=== PATIENT | female | born 1985 | race Caucasian/White ===

== ENCOUNTER 2017-04-26 11:16 | Inpatient (IN) | payer BC ==
[2017-04-26] MEDS ORDERED: Sodium Chloride 0.9% 10 ML Syringe FLUSH PRN (11:28)
[2017-04-26] MEDS ORDERED: Sodium Chloride 0.9% 1,000 ML IV ONE (11:28)
--- NOTE | 2017-04-26 11:44 | EDM.PDOC ---
ED HPI GENERAL MEDICAL PROBLEM - General Chief Complaint: Neurological Problem Stated Complaint: 1 HR AGO/NUMBNESS L SIDE OF FACE/SLURRED SPEECH Time Seen by Provider: 04/26/17 11:18 Source of Information: Reports: Patient History Limitations: Reports: No Limitations - History of Present Illness INITIAL COMMENTS - FREE TEXT/NARRATIVE: 31-year-old female presents for evaluation and treatment of left-sided facial droop. Patient reports about one hour prior to arrival she developed left-sided facial droop and slurred speech. This was witnessed by her . Reports lasted approximately 10 seconds and then resolved on its own. She reports currently she feels "off". She also reports shaky and tingling in her bilateral arms. She states her vision was blurred when this occurred but has now returned to normal. She denies any current headaches, chest pain, shortness of breath, nausea, vomiting or syncope. Patient reports she did feel lightheaded with this occurred. She did feel nauseous earlier but this is resolved. She is that she did feel short of breath and felt like she was not oxygenating properly. Patient is only on levothyroxine and multivitamins. She is currently breast-feeding. Last menstrual period was several weeks ago. Primary care provider is Dr. Mims Denies any illicit drug use. Patient does smoke cigarettes. 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: Endocrine/Metabolic History: Reports: Hypothyroidism - Past Surgical History HEENT Surgical History: Reports: Oral Surgery Social & Family History - Family History Family Medical History: Noncontributory - Tobacco Use Smoking Status *Q: Former Smoker Years of Tobacco use: 10 Packs/Tins Daily: 1 Used Tobacco, but Quit: Yes Month Tobacco Last Used: June Second Hand Smoke Exposure: Yes - Caffeine Use Caffeine Use: Reports: Coffee - Recreational Drug Use Recreational Drug Use: No ED ROS GENERAL - Review of Systems Review Of Systems: See Below Constitutional: Denies: Fever HEENT: Reports: Other (left facial droop) Respiratory: Denies: Shortness of Breath Cardiovascular: Denies: Chest Pain GI/Abdominal: Denies: Abdominal Pain, Vomiting Neurological: Reports: Tingling (bilteral arms). Denies: Headache, Syncope ED EXAM, NEURO - Physical Exam Exam: See Below Exam Limited By: No Limitations General Appearance: Alert, WD/WN, No Apparent Distress Eye Exam: Bilateral Eye: EOMI, Normal Inspection, PERRL Ears: Normal External Exam Nose: Normal Inspection Throat/Mouth: Normal Inspection, Normal Lips, Normal Voice, No Airway Compromise Neck: Normal Inspection Respiratory/Chest: No Respiratory Distress, Lungs Clear, Normal Breath Sounds Cardiovascular: Normal Peripheral Pulses, Regular Rate, Rhythm, No Murmur GI/Abdominal: Soft, Non-Tender Neurological: Alert, Normal Mood/Affect, Normal Dorsiflexion, CN II-XII Intact, Normal Plantar Flexion, Other (no drift to the arms or legs, ingredient scaler helper 5/5 bilaterally, dorsiflexion and plantar flexion 5/5 bilaterally; normal heel to golden testing, normal finger to nose testing.) Psychiatric: Normal Affect, Normal Mood Skin Exam: Warm, Dry, Normal Color EKG INTERPRETATION EKG Date: 04/26/17 Time: 11:40 Rate (Beats/Min): 48 [place]: Normal P-Wave: Present QRS: Normal ST-T: Normal QT: Normal EKG Interpretation Comments: Sinus bradycardia at 48 bpm. No acute changes. Reviewed by myself and Dr. Aiken. Course - Vital Signs Last Recorded V/S: Last Vital Signs Temp 36.4 C 04/26/17 20:03 Pulse 51 L 04/26/17 20:03 Resp 16 04/26/17 20:04 BP 123/80 04/26/17 20:03 Pulse Ox 98 04/26/17 20:03 - Orders/Labs/Meds Orders: Active Orders 24 hr Category Date Time Status EKG Documentation Completion [RC] ASDIRECTED Care 04/26/17 11:29 Active Peripheral IV Care [RC] Q2HR Care 04/26/17 11:29 Active Chest 1V Frontal [CR] Stat Exams 04/26/17 11:28 Taken Sodium Chloride 0.9% [Saline Flush] Med 04/26/17 11:28 Active 10 ml FLUSH ASDIRECTED PRN Peripheral IV Insertion Adult [OM.PC] Routine Oth 04/26/17 11:28 Ordered EKG 12 Lead [EK] Stat Ther 04/26/17 11:28 Ordered Medication Orders Acetaminophen (Tylenol) 650 mg PO Q4H PRN PRN Reason: Pain (Mild 1-3)/fever Ondansetron HCl (Zofran Odt) 4 mg PO Q6H PRN PRN Reason: nausea, able to take PO Ondansetron HCl (Zofran) 4 mg IV Q6H PRN PRN Reason: Nausea/Vomiting Sodium Chloride (Saline Flush) 10 ml FLUSH ASDIRECTED PRN PRN Reason: Keep Vein Open Last Admin: 04/26/17 11:43 Dose: 10 ml Labs: Laboratory Tests 04/26/17 04/26/17 04/26/17 Range/Units 11:37 11:37 11:37 WBC 7.05 (3.98-10.04) K/mm3 RBC 4.46 (3.98-5.22) M/mm3 Hgb 13.6 (11.2-15.7) gm/L Hct 41.7 (34.1-44.9) % MCV 93.5 (79.4-94.8) fl MCH 30.5 (25.6-32.2) pg MCHC 32.6 (32.2-35.5) g/dl RDW Std Deviation 42.2 (36.4-46.3) fL Plt Count 220 (182-369) K/mm3 MPV 10.3 (9.4-12.3) fl Neutrophils % (Manual) 53 (40-60) % Band Neutrophils % 0 (0-10) % Lymphocytes % (Manual) 39 (20-40) % Atypical Lymphs % 0 % Monocytes % (Manual) 4 (2-10) % Eosinophils % (Manual) 4 (0.7-5.8) % Basophils % (Manual) 0 L (0.1-1.2) Platelet Estimate Adequate RBC Morph Comment Normal PT 10.5 (8.0-13.0) SECONDS INR 0.97 APTT 26 (22-36) SECONDS Sodium 143 (136-145) mEq/L Potassium 4.4 (3.5-5.1) mEq/L Chloride 107 (98-107) mEq/L Carbon Dioxide 26 (21-32) mEq/L Anion Gap 14.4 (5-15) BUN 17 (7-18) mg/dL Creatinine 1.3 H (0.55-1.02) mg/dL Est Cr Clr Drug Dosing 62.67 mL/min Estimated GFR (MDRD) 47 (>60) mL/min BUN/Creatinine Ratio 13.1 L (14-18) Glucose 105 (74-106) mg/dL Calcium 9.1 (8.5-10.1) mg/dL Magnesium 1.9 (1.8-2.4) mg/dl Total Bilirubin 0.5 (0.2-1.0) mg/dL AST 19 (15-37) U/L ALT 23 (14-59) U/L Alkaline Phosphatase 63 (46-116) U/L Total Protein 7.3 (6.4-8.2) g/dl Albumin 4.0 (3.4-5.0) g/dl Globulin 3.3 gm/dL Albumin/Globulin Ratio 1.2 (1-2) TSH 3rd Generation 0.613 (0.358-3.74) uIU/mL HCG, Qual (NEGATIVE) Urine Color (Yellow) Urine Appearance (Clear) Urine pH (5.0-8.0) Ur Specific [place] (1.005-1.030) Urine Protein (Negative) Urine Glucose (UA) (Negative) Urine Ketones (Negative) Urine Occult Blood (Negative) Urine Nitrite (Negative) Urine Bilirubin (Negative) Urine Urobilinogen (0.2-1.0) Ur Leukocyte Esterase (Negative) Urine RBC (0-5) /hpf Urine WBC (0-5) /hpf Ur Epithelial Cells (0-5) /hpf Urine Bacteria (FEW) /hpf Urine Mucus (FEW) /hpf Urine Opiates Screen (NEGATIVE) Ur Buprenorphine Scrn (NEGATIVE) Ur Oxycodone Screen (NEGATIVE) Urine Methadone Screen (NEGATIVE) Ur Propoxyphene Screen (NEGATIVE) Ur Barbiturates Screen (NEGATIVE) Ur Tricyclics Screen (NEGATIVE) Ur Phencyclidine Scrn (NEGATIVE) Ur Amphetamine Screen (NEGATIVE) U Methamphetamines Scrn (NEGATIVE) U Benzodiazepines Scrn (NEGATIVE) U Cocaine Metab Screen (NEGATIVE) U Marijuana (THC) Screen (NEGATIVE) Ethyl Alcohol 0.00 (0.00) gm% 04/26/17 04/26/17 04/26/17 Range/Units 11:37 13:15 13:15 WBC (3.98-10.04) K/mm3 RBC (3.98-5.22) M/mm3 Hgb (11.2-15.7) gm/L Hct (34.1-44.9) % MCV (79.4-94.8) fl MCH (25.6-32.2) pg MCHC (32.2-35.5) g/dl RDW Std Deviation (36.4-46.3) fL Plt Count (182-369) K/mm3 MPV (9.4-12.3) fl Neutrophils % (Manual) (40-60) % Band Neutrophils % (0-10) % Lymphocytes % (Manual) (20-40) % Atypical Lymphs % % Monocytes % (Manual) (2-10) % Eosinophils % (Manual) (0.7-5.8) % Basophils % (Manual) (0.1-1.2) Platelet Estimate RBC Morph Comment PT (8.0-13.0) SECONDS INR APTT (22-36) SECONDS Sodium (136-145) mEq/L Potassium (3.5-5.1) mEq/L Chloride (98-107) mEq/L Carbon Dioxide (21-32) mEq/L Anion Gap (5-15) BUN (7-18) mg/dL Creatinine (0.55-1.02) mg/dL Est Cr Clr Drug Dosing mL/min Estimated GFR (MDRD) (>60) mL/min BUN/Creatinine Ratio (14-18) Glucose (74-106) mg/dL Calcium (8.5-10.1) mg/dL Magnesium (1.8-2.4) mg/dl Total Bilirubin (0.2-1.0) mg/dL AST (15-37) U/L ALT (14-59) U/L Alkaline Phosphatase (46-116) U/L Total Protein (6.4-8.2) g/dl Albumin (3.4-5.0) g/dl Globulin gm/dL Albumin/Globulin Ratio (1-2) TSH 3rd Generation (0.358-3.74) uIU/mL HCG, Qual Negative (NEGATIVE) Urine Color Yellow (Yellow) Urine Appearance Clear (Clear) Urine pH 6.0 (5.0-8.0) Ur Specific [place] 1.020 (1.005-1.030) Urine Protein Negative (Negative) Urine Glucose (UA) Negative (Negative) Urine Ketones Negative (Negative) Urine Occult Blood Negative (Negative) Urine Nitrite Negative (Negative) Urine Bilirubin Negative (Negative) Urine Urobilinogen 0.2 (0.2-1.0) Ur Leukocyte Esterase Negative (Negative) Urine RBC 0-5 (0-5) /hpf Urine WBC 0-5 (0-5) /hpf Ur Epithelial Cells 0-5 (0-5) /hpf Urine Bacteria Not seen (FEW) /hpf Urine Mucus Not seen (FEW) /hpf Urine Opiates Screen Negative (NEGATIVE) Ur Buprenorphine Scrn Negative (NEGATIVE) Ur Oxycodone Screen Negative (NEGATIVE) Urine Methadone Screen Negative (NEGATIVE) Ur Propoxyphene Screen Negative (NEGATIVE) Ur Barbiturates Screen Negative (NEGATIVE) Ur Tricyclics Screen Negative (NEGATIVE) Ur Phencyclidine Scrn Negative (NEGATIVE) Ur Amphetamine Screen Negative (NEGATIVE) U Methamphetamines Scrn Negative (NEGATIVE) U Benzodiazepines Scrn Negative (NEGATIVE) U Cocaine Metab Screen Negative (NEGATIVE) U Marijuana (THC) Screen Presumptive positive H (NEGATIVE) Ethyl Alcohol (0.00) gm% Meds: Medications Generic Name Dose Route Start Last Admin Trade Name Freq PRN Reason Stop Dose Admin Acetaminophen 650 mg 04/26/17 19:07 Tylenol PO Q4H PRN Pain (Mild 1-3)/fever Ondansetron HCl 4 mg 04/26/17 19:07 Zofran Odt PO Q6H PRN nausea, able to take PO Ondansetron HCl 4 mg 04/26/17 19:07 Zofran IV Q6H PRN Nausea/Vomiting Sodium Chloride 10 ml 04/26/17 11:28 04/26/17 11:43 Saline Flush FLUSH 10 ml ASDIRECTED PRN Administration Keep Vein Open Discontinued Medications Generic Name Dose Route Start Last Admin Trade Name Freq PRN Reason Stop Dose Admin Sodium Chloride 1,000 mls @ 999 mls/hr 04/26/17 11:28 04/26/17 11:42 Normal Saline IV 04/26/17 12:28 999 mls/hr ONETIME ONE Administration - Radiology Interpretation Free Text/Narrative:: chest xray shows no acute intrathoracic process. Head CT Technique: Multiple axial sections through the brain were obtained. Intravenous contrast was not utilized. Comparison: No previous intracranial imaging. Findings: Ventricles along the basal cisterns and sulci over convexities are within normal limits for the patient's age. No abnormal parenchymal densities are seen. No evidence of intracranial hemorrhage. No midline shift or mass effect is seen. Small low density area is seen within the posterior right basal ganglia believed to represent a slightly prominent perivascular space as an incidental note. Bone window settings were reviewed which shows no acute calvarial abnormality. Visualized sinuses are clear. Impression: 1. Incidental finding. No acute intracranial abnormality is seen. Given the patient's symptoms, MRI could be considered to further evaluate. MRI brain (without contrast) Technique: T1 and T2 FLAIR sagittal; T1, T2, T2, T2 gradient echo and diffusion axial; T1 FLAIR coronal images were obtained. Comparison: Prior head CT study performed earlier on the same day. Findings: Ventricles along with basal cisterns and sulci over convexities are within normal limits for the patient's age. Normal signal void is seen within the major cerebral arteries within the skull base. No abnormal signal is seen within the brain parenchyma. No midline shift or mass effect is seen. No acute diffusion abnormalities are identified. Impression: 1. No abnormality is identified on MRI study of the brain. CT Results Date: 04/27/17 - Re-Assessments/Exams Free Text/Narrative Re-Assessment/Exam: 04/26/17 14:23 Offered an inpatient stay to further evaluate TIA. She does not want to do this. She would like instead to come back and do the MRI and other studies. I attempted to call her primary care provider but she is not in today. I will have her do these outpatient. They've been scheduled for Monday the fifth check and at noon. Discharge instructions as documented. 04/26/17 16:57 After setting up an outpatient MRI, carotid artery ultrasound and echocardiogram the patient decided to stay. She does not feel she should safely go home. I discussed the case with Dr. Moe, hospitalist on-call. We are to get an MRI here in the ER. Plan will be to admit her and get a carotid artery ultrasound and echocardiogram tomorrow. Departure - Departure Time of Disposition: 14:38 Disposition: Admitted As Inpatient 65 Condition: Good Clinical Impression: TIA (transient ischemic attack) - Discharge Information - My Orders Last 24 Hours: My Active Orders 04/26/17 11:28 Chest 1V Frontal [CR] Stat Sodium Chloride 0.9% [Saline Flush] 10 ml FLUSH ASDIRECTED PRN Peripheral IV Insertion Adult [OM.PC] Routine EKG 12 Lead [EK] Stat 04/26/17 11:29 EKG Documentation Completion [RC] ASDIRECTED Peripheral IV Care [RC] Q2HR - Assessment/Plan Last 24 Hours: My Active Orders 04/26/17 11:28 Chest 1V Frontal [CR] Stat Sodium Chloride 0.9% [Saline Flush] 10 ml FLUSH ASDIRECTED PRN Peripheral IV Insertion Adult [OM.PC] Routine EKG 12 Lead [EK] Stat 04/26/17 11:29 EKG Documentation Completion [RC] ASDIRECTED Peripheral IV Care [RC] Q2HR
--- NOTE | 2017-04-26 11:59 | CT ---
Head CT Technique: Multiple axial sections through the brain were obtained. Intravenous contrast was not utilized. Comparison: No previous intracranial imaging. Findings: Ventricles along the basal cisterns and sulci over convexities are within normal limits for the patient's age. No abnormal parenchymal densities are seen. No evidence of intracranial hemorrhage. No midline shift or mass effect is seen. Small low density area is seen within the posterior right basal ganglia believed to represent a slightly prominent perivascular space as an incidental note. Bone window settings were reviewed which shows no acute calvarial abnormality. Visualized sinuses are clear. Impression: 1. Incidental finding. No acute intracranial abnormality is seen. Given the patient's symptoms, MRI could be considered to further evaluate. Diagnostic code #1
--- NOTE | 2017-04-26 16:03 | MR ---
MRI brain (without contrast) Technique: T1 and T2 FLAIR sagittal; T1, T2, T2, T2 gradient echo and diffusion axial; T1 FLAIR coronal images were obtained. Comparison: Prior head CT study performed earlier on the same day. Findings: Ventricles along with basal cisterns and sulci over convexities are within normal limits for the patient's age. Normal signal void is seen within the major cerebral arteries within the skull base. No abnormal signal is seen within the brain parenchyma. No midline shift or mass effect is seen. No acute diffusion abnormalities are identified. Impression: 1. No abnormality is identified on MRI study of the brain. Diagnostic code #1
[2017-04-26] MEDS ORDERED: Ondansetron 4 MG Tab.DIS PO PRN (19:07)
[2017-04-26] MEDS ORDERED: Ondansetron 4 MG/2 ML SDV IV PRN (19:07)
[2017-04-26] MEDS ORDERED: Acetaminophen 325 MG Tab PO PRN (19:07)
--- NOTE | 2017-04-26 19:23 | PCM.HP ---
<Hector Rebolledo - Last Filed: 04/26/17 23:01> H&P History of Present Illness - General Date of Service: 04/26/17 Admit Problem/Dx: Admission Diagnosis/Problem Admission Diagnosis/Problem TIA, Transient ischemic attack Source of Information: Patient, Old Records, Provider, RN, RN Notes Reviewed History Limitations: Reports: No Limitations - History of Present Illness Initial Comments - Free Text/Narative: Chantel Loya is a 31 yo female who gets her ED today with left-sided facial droop. His reported about a hour prior to arrival at the ED she develops left- sided facial droop and slurred speech. This was witnessed by her . Patient reports that feels like she was "under water" with visual and auditory changes. He reported to last about 10 seconds and resolve on its own. She reports it felt like a "pop" inside her head. On arrival to the ED she reported still feeling "off". She reports being shaky and tingling bilaterally in her arms. She reports blurred vision but is now returning to normal. Denies any current headache, chest pain, shortness of breath, nausea, vomiting, syncope. Patient reports she did feel lightheaded during the episode. She did feel nauseous also, but this has resolved. She also reports feeling short of breath like she was "not oxygenating properly." Last menstrual period was several weeks ago. Of note she is currently breast-feeding a [id number]-hvf, and pumps regularly. Once in the ED she was afebrile with a temp of 36.3 Celsius. Pulse was 62. Respirations 14. BP 137/90. Pulse ox 100% on room air. Labs were obtained: The CBC is 7.05. Hemoglobin 13.6. Hematocrit 41.7. She was normocytic. Platelets are normal at 220,000. Neutrophils are normal at 53%. There is no bandemia. PT is 10.5. INR 0.97. APTT 26. Sodium is 143. Potassium is 4.4. Chloride 107. Carbon dioxide 26. Anion gap 14.4. BUN 17. Creatinine 1.3. EGFR is 47. Glucose is 105. Calcium 9.1. Magnesium 1.9. Total bilirubin 0.5. Liver enzymes looked good with AST and 19, ALT at 23, alkaline phosphatase at 63. Albumin is 4.0. TSH is 0.613, which is on the low end of normal. HCG is negative. UA is negative. Urine drug screen is presumptive positive for marijuana. Patient does report that she smokes marijuana approximately twice daily. She also admits to smoking regularly. Ethyl alcohol is 0.00. She is given a [address] scan shows a small low- density area seen within the posterior right basal ganglia bleed represent a slightly prominent perivascular space as an incidental note. No acute intercranial abnormalities seen. An MRI is suggested. This is interpreted by Dr. Hendrickson, radiologist. MRI was also obtained and interpreted by Dr. Hendrickson as "No abnormality is identified on MRI study of the brain." Twelve-lead EKG is performed and shows sinus bradycardia with a borderline short TX interval. It is reported the patient has Nedfh-Bxnkfyzav-Texri, however 12-lead EKG findings here do not support this. She carries a history of hypothyroidism. As noted, she is a current smoker. She subsequently admitted to the medical floor with telemetry. She is a full code. Her PCP is Dr. Nair at [facility] here in [place]. 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 [employer] History: Reports: Neurological History: Reports: TIA Other Neuro History: just current admission today , see ER history Endocrine/Metabolic History: Reports: Hypothyroidism - Past Surgical History HEENT Surgical History: Reports: Oral Surgery Cardiovascular Surgical History: Reports: None Endocrine Surgical History: Reports: None Neurological Surgical History: Reports: None Musculoskeletal Surgical History: Reports: Other (See Below) Other Musculoskeletal Surgeries/Procedures:: broken right collar bone 1995 Dermatological Surgical History: Reports: None Social & Family History - Family History Family Medical History: Noncontributory Oncologic: Reports: Thyroid Other Oncologic Family History: mother - Tobacco Use Smoking Status *Q: Current Every Day Smoker Years of Tobacco use: 15 Packs/Tins Daily: 0.4 Used Tobacco, but Quit: No Month Tobacco Last Used: June Tobacco Use Comment: both are working on quitting Second Hand Smoke Exposure: Yes - Caffeine Use Caffeine Use: Reports: Coffee Other Caffeine Use: 2-3 - Recreational Drug Use Recreational Drug Use: Yes Drug Use in Last 12 Months: Yes Recreational Drug Type: Reports: Marijuana/Hashish Recreational Drug Use Frequency: Daily H&P Review of Systems - Review of Systems: Review Of Systems: See Below General: Reports: No Symptoms. Denies: Fever, Chills, Malaise, Weakness, Fatigue HEENT: Reports: No Symptoms. Denies: Ear Pain, Eye Pain, Headaches, Hearing Changes, Rhinitis, Sore Throat, Visual Changes Pulmonary: Reports: No Symptoms. Denies: Shortness of Breath, Wheezing, Pleuritic Chest Pain, Cough, Sputum Cardiovascular: Reports: No Symptoms. Denies: Chest Pain, Palpitations, Dyspnea on Exertion, Edema, Lightheadedness Gastrointestinal: Reports: No Symptoms. Denies: Abdominal Pain, Constipation, Diarrhea, Difficulty Swallowing, Nausea, Vomiting Genitourinary: Reports: No Symptoms. Denies: Dysuria, Frequency, Burning, Pain , Urgency Musculoskeletal: Reports: No Symptoms. Denies: Neck Pain, Shoulder Pain, Arm Pain, Back Pain, Hand Pain, Leg Pain, Foot Pain, Joint Pain, Joint Swelling, Muscle Pain, Muscle Stiffness Skin: Reports: No Symptoms Psychiatric: Reports: No Symptoms. Denies: Confusion, Depression, Mood Lability , Anxiety, Hallucinations Neurological: Reports: No Symptoms. Denies: Confusion, Dizziness, Headache, Numbness, Pre-Existing Deficit, Seizure, Syncope, Tingling, Tremors, Trouble Speaking, Difficulty Walking, Weakness, Change in Speech, Gait Disturbance Hematologic/Lymphatic: Reports: No Symptoms Immunologic: Reports: No Symptoms Exam - Exam Exam: See Below - Vital Signs Vital Signs: Last Vital Signs Temp 96.6 F 04/26/17 18:09 Pulse 49 L 04/26/17 18:09 Resp 16 04/26/17 18:09 BP 131/78 04/26/17 18:09 Pulse Ox 100 04/26/17 18:09 Weight: 72.575 kg - Exam Quality Assessment: DVT Prophylaxis General: Alert, Oriented, Cooperative. No: Mild Distress HEENT: Conjunctiva Clear, EACs Clear, EOMI, Hearing Intact, Mucosa Moist & [place] , Nares Patent, Normal Nasal Septum, Posterior Pharynx Clear, PERRLA Neck: Supple, Trachea Midline. No: JVD, Thyromegaly Lungs: Clear to Auscultation, Normal Respiratory Effort Cardiovascular: Regular Rate, Regular Rhythm GI/Abdominal Exam: Normal Bowel Sounds, Soft, Non-Tender, No Organomegaly, No Distention, No Abnormal Bruit, No Mass, Pelvis Stable (Female) Exam: Deferred Rectal (Female) Exam: Deferred Back Exam: Normal Inspection, Full Range of Motion Extremities: Normal Inspection, Normal Range of Motion, Non-Tender, No Pedal Edema, Normal Capillary Refill Peripheral Pulses: 2+: Radial (L), Radial (R), Posterior Tibial (L), Posterior Tibial (R), Dorsalis Pedis (L), Dorsalis Pedis (R) Skin: Warm, Dry, Intact Neurological: Cranial Nerves Intact, Strength Equal Bilateral, Normal Gait, Normal Speech, Normal Tone, Sensation Intact. No: Focal Deficit Neuro Extensive - Mental Status: Alert, Oriented x3, Normal Mood/Affect, Normal Cognition, Memory Intact Neuro Extensive - Motor, Sensory, Reflexes: CN II-XII Intact, Normal Gait. No: Ataxia, Tongue Deviation (L), Tongue Deviation (R), Facial palsy (L), Facial Palsy (R), Hemeplagia (R), Hemeplagia (L), Pronator Drift (R), Pronator Drift (L ), Abnormal Finger to Nose, Abnormal Sensation, Abnormal Light Touch, Abnormal Motor, Abn 2 Pt Discrimination, Tremor, Motor/Sensory Deficits Psychiatric: Alert, Normal Affect, Normal Mood - Patient Data Result Diagrams: 04/26/17 11:37 04/26/17 11:37 *Q Meaningful Use (ADM) - VTE *Q VTE Criteria *Q: - Stroke *Q Stroke Criteria *Q: - AMI *Q AMI Criteria *Q: - Problem List (1) TIA (transient ischemic attack) SNOMED Code(s): 560355434 ICD Code: G45.9 - TRANSIENT CEREBRAL ISCHEMIC ATTACK, UNSPECIFIED Status: Acute Current Visit: Yes (2) Renal insufficiency SNOMED Code(s): 488496154 ICD Code: N28.9 - DISORDER OF KIDNEY AND URETER, UNSPECIFIED Status: Acute Priority: Medium Current Visit: Yes (3) Hypothyroidism SNOMED Code(s): 71792399 ICD Code: E03.9 - HYPOTHYROIDISM, UNSPECIFIED Status: Chronic Priority: Low Current Visit: No QualifierTitle: Hypothyroidism type: unspecified Qualified Code(s): E03.9 - Hypothyroidism, unspecified (4) Marijuana abuse SNOMED Code(s): 08332135 ICD Code: F12.10 - CANNABIS ABUSE, UNCOMPLICATED Status: Chronic Priority : Low Current Visit: Yes (5) Tobacco use disorder SNOMED Code(s): 406954850 ICD Code: F17.200 - NICOTINE DEPENDENCE, UNSPECIFIED, UNCOMPLICATED Status : Chronic Priority: Low Current Visit: Yes Problem List Initiated/Reviewed/Updated: Yes Orders Last 24hrs: Active Orders 24 hr Category Date Time Status Ambulate [RC] ASDIRECTED Care 04/26/17 19:07 Active Ambulate [RC] PER UNIT ROUTINE Care 04/26/17 19:08 Active Antiembolic Devices [RC] PER UNIT ROUTINE Care 04/26/17 19:08 Active Cardiac Monitoring [RC] . DIRECTED Care 04/26/17 19:06 Active Height and Weight [RC] DAILY Care 04/26/17 19:07 Active Intake and Output [RC] QSHIFT Care 04/26/17 19:07 Active Neuro Check [RC] BID Care 04/26/17 19:15 Active Oxygen Therapy [RC] PRN Care 04/26/17 19:07 Active Pulse Oximetry [RC] PRN Care 04/26/17 19:08 Active Up ad Shelly [RC] ASDIRECTED Care 04/26/17 19:07 Active VTE/DVT Education [RC] PER UNIT ROUTINE Care 04/26/17 19:07 Active Vital Signs [RC] Q4H Care 04/26/17 19:07 Active Consult to Case Management [CONS] Routine Cons 04/26/17 19:07 Active Consult to School Psychology Specialist [CONS] Routine Cons 04/26/17 19:07 Active Regular Diet [DIET] Diet 04/26/17 Dinner Active Carotid Comp [US] Routine Exams 04/27/17 08:00 Ordered Echo 2D wo Cont [US] Routine Exams 04/26/17 19:13 Stop Req Echo 2D wo Cont [US] Routine Exams 04/27/17 08:00 Ordered JACEY SCREEN RFLX [REF] Routine Lab 04/27/17 05:11 Ordered BASIC METABOLIC PANEL,BMP [CHEM] AM Lab 04/27/17 05:11 Ordered BASIC METABOLIC PANEL,BMP [CHEM] AM Lab 04/28/17 05:11 Ordered BASIC METABOLIC PANEL,BMP [CHEM] AM Lab 04/29/17 05:11 Ordered BASIC METABOLIC PANEL,BMP [CHEM] AM Lab 04/30/17 05:11 Ordered CBC WITH AUTO DIFF [HEME] AM Lab 04/27/17 05:11 Ordered CBC WITH AUTO DIFF [HEME] AM Lab 04/28/17 05:11 Ordered CBC WITH AUTO DIFF [HEME] AM Lab 04/29/17 05:11 Ordered CBC WITH AUTO DIFF [HEME] AM Lab 04/30/17 05:11 Ordered MAGNESIUM [CHEM] AM Lab 04/27/17 05:11 Ordered MAGNESIUM [CHEM] AM Lab 04/28/17 05:11 Ordered MAGNESIUM [CHEM] AM Lab 04/29/17 05:11 Ordered MAGNESIUM [CHEM] AM Lab 04/30/17 05:11 Ordered RHEUMATOID FACT.W/RFX TO TITER [CHEM] Routine Lab 04/27/17 05:11 Ordered Acetaminophen [Tylenol] Med 04/26/17 19:07 Active 650 mg PO Q4H PRN Ondansetron [Zofran ODT] Med 04/26/17 19:07 Active 4 mg PO Q6H PRN Ondansetron [Zofran] Med 04/26/17 19:07 Active 4 mg IV Q6H PRN Antiembolic Hose [OM.PC] Per Unit Routine Oth 04/26/17 19:08 Ordered Resuscitation Status Routine Resus Stat 04/26/17 19:07 Ordered Medication Orders Acetaminophen (Tylenol) 650 mg PO Q4H PRN PRN Reason: Pain (Mild 1-3)/fever Ondansetron HCl (Zofran Odt) 4 mg PO Q6H PRN PRN Reason: nausea, able to take PO Ondansetron HCl (Zofran) 4 mg IV Q6H PRN PRN Reason: Nausea/Vomiting Sodium Chloride (Saline Flush) 10 ml FLUSH ASDIRECTED PRN PRN Reason: Keep Vein Open Last Admin: 04/26/17 11:43 Dose: 10 ml Assessment/Plan Comment:: I/P: Acute: TIA -Reported left sided facial droop and slurred speech lasting approximately 10 seconds -Witnessed by -Spontaneous resolution -Shaky and tingling feeling in both arms -No headache -Reports auditory and visual changes during episode -No symptoms in ED or on floor -WBC 7.05 -PT 10.5 -INR 0.97 -APTT 26 -TSH 0.613 -HCG negative -UA negative -Head CT shows incidental findings with nothing acute -MRI is negative -Drug screen positive for Marijuana, Ethyl alcohol 0.00 -Neuro checks as ordered -Carotid artery ultrasound in AM -Lipid panel in AM -Echo in AM -Will need follow-up by PCP Acute renal insufficiency -BUN 17 -Cretinine 1.3 -eGFR 47 -Given 1L fluid bolus in ED -IV fluids as ordered -Continue to monitor Chronic: Hypothyroidism-stable Marijuana use - discuss cessation Tobacco use disorder - smoking cessation counseling There has been some discussion on the patient having Eezlq-Ynvhenixg-Glwxv syndrome, although 12-lead EKG here does not correlate this. Plan: Admit to medical floor with telemetry CM/SW for discharge planning Routine AM labs Other orders as indicated above Home medications as ordered DVT prophylaxis: ROXANA harding and ambulation Code status: Full Code. Her PCP is Dr. Nair at [facility] here in [place]. <Santa Moe M - Last Filed: 04/27/17 12:04> H&P History of Present Illness - General Admit Problem/Dx: Admission Diagnosis/Problem Admission Diagnosis/Problem TIA, Transient ischemic attack Exam - Vital Signs Vital Signs: Last Vital Signs Temp 36.7 C 04/27/17 08:58 Pulse 44 L 04/27/17 08:58 Resp 18 04/27/17 08:58 BP 113/69 04/27/17 08:58 Pulse Ox 96 04/27/17 08:58 - Patient Data Lab Results Last 24 hrs: Laboratory Results - last 24 hr 04/27/17 04/27/17 04/27/17 Range/Units 06:40 06:40 06:40 WBC 6.12 (3.98-10.04) K/mm3 RBC 4.33 (3.98-5.22) M/mm3 Hgb 13.2 (11.2-15.7) gm/L Hct 40.4 (34.1-44.9) % MCV 93.3 (79.4-94.8) fl MCH 30.5 (25.6-32.2) pg MCHC 32.7 (32.2-35.5) g/dl RDW Std Deviation 42.3 (36.4-46.3) fL Plt Count 197 (182-369) K/mm3 MPV 10.6 (9.4-12.3) fl Neut % (Auto) 50.2 (34.0-71.1) % Lymph % (Auto) 35.8 (19.3-51.7) % [place] % (Auto) 9.0 (4.7-12.5) % Eos % (Auto) 3.9 (0.7-5.8) Baso % (Auto) 1.1 (0.1-1.2) % Neut # (Auto) 3.07 (1.56-6.13) K/mm3 Lymph # (Auto) 2.19 (1.18-3.74) K/mm3 [place] # (Auto) 0.55 H (0.24-0.36) K/mm3 Eos # (Auto) 0.24 (0.04-0.36) K/mm3 Baso # (Auto) 0.07 (0.01-0.08) K/mm3 Sodium 143 (136-145) mEq/L Potassium 4.2 (3.5-5.1) mEq/L Chloride 109 H (98-107) mEq/L Carbon Dioxide 23 (21-32) mEq/L Anion Gap 15.2 H (5-15) BUN 17 (7-18) mg/dL Creatinine 1.0 (0.55-1.02) mg/dL Est Cr Clr Drug Dosing 81.47 mL/min Estimated GFR (MDRD) > 60 (>60) mL/min BUN/Creatinine Ratio 17.0 (14-18) Glucose 90 (74-106) mg/dL Calcium 8.5 (8.5-10.1) mg/dL Magnesium 1.9 (1.8-2.4) mg/dl Triglycerides 44 (<150) mg/dL Cholesterol 148 (<200) mg/dL LDL Cholesterol Direct 73 (<100) mg/dL HDL Cholesterol 65.0 H (40-59) mg/dL Rheumatoid Factor Scrn Negative (NEGATIVE) Result Diagrams: 04/27/17 06:40 04/27/17 06:40 *Q Meaningful Use (ADM) - VTE *Q VTE Criteria *Q: - Stroke *Q Stroke Criteria *Q: - AMI *Q AMI Criteria *Q: Orders Last 24hrs: Active Orders 24 hr Category Date Time Status Ambulate [RC] ASDIRECTED Care 04/26/17 19:07 Active Ambulate [RC] PER UNIT ROUTINE Care 04/26/17 19:08 Active Antiembolic Devices [RC] PER UNIT ROUTINE Care 04/26/17 19:08 Active Cardiac Monitoring [RC] . DIRECTED Care 04/26/17 19:06 Active Height and Weight [RC] DAILY Care 04/26/17 19:07 Active Intake and Output [RC] QSHIFT Care 04/26/17 19:07 Active Neuro Check [RC] BID Care 04/26/17 19:15 Active Oxygen Therapy [RC] PRN Care 04/26/17 19:07 Active Pulse Oximetry [RC] PRN Care 04/26/17 19:08 Active Up ad Shelly [RC] ASDIRECTED Care 04/26/17 19:07 Active VTE/DVT Education [RC] PER UNIT ROUTINE Care 04/26/17 19:07 Active Vital Signs [RC] Q4HR Care 04/26/17 19:07 Active Consult to Case Management [CONS] Routine Cons 04/26/17 19:07 Active Consult to School Psychology Specialist [CONS] Routine Cons 04/26/17 19:07 Active Regular Diet [DIET] Diet 04/26/17 Dinner Active JACEY SCREEN RFLX [REF] Routine Lab 04/27/17 06:40 Received BASIC METABOLIC PANEL,BMP [CHEM] AM Lab 04/28/17 05:11 Ordered BASIC METABOLIC PANEL,BMP [CHEM] AM Lab 04/29/17 05:11 Ordered BASIC METABOLIC PANEL,BMP [CHEM] AM Lab 04/30/17 05:11 Ordered CBC WITH AUTO DIFF [HEME] AM Lab 04/28/17 05:11 Ordered CBC WITH AUTO DIFF [HEME] AM Lab 04/29/17 05:11 Ordered CBC WITH AUTO DIFF [HEME] AM Lab 04/30/17 05:11 Ordered MAGNESIUM [CHEM] AM Lab 04/28/17 05:11 Ordered MAGNESIUM [CHEM] AM Lab 04/29/17 05:11 Ordered MAGNESIUM [CHEM] AM Lab 04/30/17 05:11 Ordered Acetaminophen [Tylenol] Med 04/26/17 19:07 Active 650 mg PO Q4H PRN Ondansetron [Zofran ODT] Med 04/26/17 19:07 Active 4 mg PO Q6H PRN Ondansetron [Zofran] Med 04/26/17 19:07 Active 4 mg IV Q6H PRN Antiembolic Hose [OM.PC] Per Unit Routine Oth 04/26/17 19:08 Ordered Resuscitation Status Routine Resus Stat 04/26/17 19:07 Ordered Medication Orders Acetaminophen (Tylenol) 650 mg PO Q4H PRN PRN Reason: Pain (Mild 1-3)/fever Ondansetron HCl (Zofran Odt) 4 mg PO Q6H PRN PRN Reason: nausea, able to take PO Ondansetron HCl (Zofran) 4 mg IV Q6H PRN PRN Reason: Nausea/Vomiting Sodium Chloride (Saline Flush) 10 ml FLUSH ASDIRECTED PRN PRN Reason: Keep Vein Open Last Admin: 04/26/17 11:43 Dose: 10 ml Assessment/Plan Comment:: PE within normal limits; CVA/neuro work up as ordered. Will remind patient of her choice of health habits: marijuana, tobacco and its effect on breast feeding.
--- NOTE | 2017-04-27 08:06 | CR ---
Chest: Portable view of the chest was obtained. Comparison: Prior chest x-ray of 12/01/08. Heart size and mediastinum are within normal limits. Lungs are clear. Minimal scoliosis is present within the spine. Old healed right clavicle fracture is seen. Impression: 1. Incidental findings. Nothing acute is identified on portable chest x-ray. Diagnostic code #2
--- NOTE | 2017-04-27 08:06 | PCM.DCSUM1 ---
Discharge Summary - Hospital Course Free Text/Narrative:: Chantel Loya is a 31 yo female who gets her ED today with left-sided facial droop. His reported about a hour prior to arrival at the ED she develops left- sided facial droop and slurred speech. This was witnessed by her . Patient reports that feels like she was "under water" with visual and auditory changes. He reported to last about 10 seconds and resolve on its own. She reports it felt like a "pop" inside her head. On arrival to the ED she reported still feeling "off". She reports being shaky and tingling bilaterally in her arms. She reports blurred vision but is now returning to normal. Denies any current headache, chest pain, shortness of breath, nausea, vomiting, syncope. Patient reports she did feel lightheaded during the episode. She did feel nauseous also, but this has resolved. She also reports feeling short of breath like she was "not oxygenating properly." Last menstrual period was several weeks ago. Of note she is currently breast-feeding a 20-ughdh-qxk, and pumps regularly. Once in the ED she was afebrile with a temp of 36.3 Celsius. Pulse was 62. Respirations 14. BP 137/90. Pulse ox 100% on room air. Labs were obtained: The CBC is 7.05. Hemoglobin 13.6. Hematocrit 41.7. She was normocytic. Platelets are normal at 220,000. Neutrophils are normal at 53%. There is no bandemia. PT is 10.5. INR 0.97. APTT 26. Sodium is 143. Potassium is 4.4. Chloride 107. Carbon dioxide 26. Anion gap 14.4. BUN 17. Creatinine 1.3. EGFR is 47. Glucose is 105. Calcium 9.1. Magnesium 1.9. Total bilirubin 0.5. Liver enzymes looked good with AST and 19, ALT at 23, alkaline phosphatase at 63. Albumin is 4.0. TSH is 0.613, which is on the low end of normal. HCG is negative. UA is negative. Urine drug screen is presumptive positive for marijuana. Patient does report that she smokes marijuana approximately twice daily. She also admits to smoking regularly. Ethyl alcohol is 0.00. She is given a [address] scan shows a small low- density area seen within the posterior right basal ganglia bleed represent a slightly prominent perivascular space as an incidental note. No acute intercranial abnormalities seen. An MRI is suggested. This is interpreted by Dr. Hendrickson, radiologist. MRI was also obtained and interpreted by Dr. Hendrickson as "No abnormality is identified on MRI study of the brain." Twelve-lead EKG is performed and shows sinus bradycardia with a borderline short ME interval. It is reported the patient has Jlpqh-Nmspzmcsh-Khgdq, however 12-lead EKG findings here do not support this. She carries a history of hypothyroidism. As noted, she is a current smoker. She subsequently admitted to the medical floor with telemetry. She is a full code. Her PCP is Dr. Nair at [facility] in [place]. - Discharge Data Discharge Date: 04/27/17 (Admit date: 04/26/17) Discharge Disposition: Home, Self-Care 01 Condition: Good - Discharge Diagnosis/Problem(s) (1) TIA (transient ischemic attack) SNOMED Code(s): 336865378 ICD Code: G45.9 - TRANSIENT CEREBRAL ISCHEMIC ATTACK, UNSPECIFIED Status: Resolved Priority: High Current Visit: Yes Qualifiers: Transient cerebral ischemia type: unspecified Qualified Code(s): G45.9 - Transient cerebral ischemic attack, unspecified (2) Renal insufficiency SNOMED Code(s): 212044192 ICD Code: N28.9 - DISORDER OF KIDNEY AND URETER, UNSPECIFIED Status: Resolved Priority: Medium Current Visit: Yes (3) Hypothyroidism SNOMED Code(s): 42927416 ICD Code: E03.9 - HYPOTHYROIDISM, UNSPECIFIED Status: Chronic Priority: Low Current Visit: No Qualifiers: Hypothyroidism type: unspecified Qualified Code(s): E03.9 - Hypothyroidism , unspecified (4) Marijuana abuse SNOMED Code(s): 14853099 ICD Code: F12.10 - CANNABIS ABUSE, UNCOMPLICATED Status: Chronic Priority : Low Current Visit: Yes (5) Tobacco use disorder SNOMED Code(s): 397513545 ICD Code: F17.200 - NICOTINE DEPENDENCE, UNSPECIFIED, UNCOMPLICATED Status : Chronic Priority: Low Current Visit: Yes - Patient Summary/Data Consults: Consultations 04/26/17 19:07 Consult to Case Management [CONS] Routine Consult to Course Instructor [CONS] Routine Recommended Follow-up Testing/Procedures: Follow-up with your PCP, Dr. Nair, within 7-10 days of discharge. Hospital Course: Patient had an uneventful hospital stay. No stroke-like symptoms overnight. Lipid panel looks excellent today. Labs looked excellent. Kidney function has returned to normal. Carotid artery ultrasound was WNL. Echo was obtained today and results will be forwarded to patient's PCP. RF and JACEY screen were obtained and are pending. She'll be discharged home today. Resume all home medications. Follow-up with PCP in 7-10 days. We are recommending starting daily ASA at 324mg. This may be adjusted if patients PCP feels it is appropriate. We did have a discussion about marijuana and cigarette use while breast-feeding. She reported smoking marijuana frequently at night. I explained my concerns to this and she voiced understanding. - Patient Instructions Diet: Usual Diet as Tolerated Activity: As Tolerated Driving: May Drive Today Showering/Bathing: May Shower Notify Provider of: Fever, Increased Pain, Nausea and/or Vomiting (Stroke like symptoms ) - Discharge Plan Home Medications: Home Meds Levothyroxine [Synthroid] 125 mcg PO DAILY 02/12/16 [History] PNV95/Ferrous Fumarate/FA [ Vitamin Tablet] 1 tab PO DAILY 02/12/16 [ History] Patient Handouts: Smoking Hazards, Cannabis Use Disorder, Transient Ischemic Attack, Idqk-yx-Qlak, Smoking Cessation, Tips for Success, Tobacco Use Disorder Forms: ED Department Discharge Referrals: Maci Pabon MD [Primary Care Provider] - - Discharge Summary/Plan Comment DC Time >30 min.: Yes (45 minutes ) - General Info Date of Service: 04/27/17 Admission Dx/Problem (Free Text: Admission Diagnosis/Problem Admission Diagnosis/Problem TIA, Transient ischemic attack Functional Status: Reports: Pain Controlled, Tolerating Diet, Ambulating, Urinating. Denies: New Symptoms - Review of Systems General: Reports: No Symptoms HEENT: Reports: No Symptoms Pulmonary: Reports: No Symptoms Cardiovascular: Reports: No Symptoms Gastrointestinal: Reports: No Symptoms Genitourinary: Reports: No Symptoms Musculoskeletal: Reports: No Symptoms Skin: Reports: No Symptoms Neurological: Reports: No Symptoms Psychiatric: Reports: No Symptoms - Patient Data Vitals - Most Recent: Last Vital Signs Temp 97.5 F 04/27/17 05:31 Pulse 52 L 04/27/17 05:31 Resp 14 04/27/17 05:31 BP 103/62 04/27/17 05:31 Pulse Ox 98 04/27/17 05:31 Weight - Most Recent: 160 lb I&O - Last 24 hours: Intake & Output 04/26/17 04/27/17 04/27/17 22:59 06:59 14:59 Intake Total 360 Output Total 400 Balance -40 Lab Results - Last 24 hrs: Laboratory Results - last 24 hr 04/27/17 04/27/17 Range/Units 06:40 06:40 WBC 6.12 (3.98-10.04) K/mm3 RBC 4.33 (3.98-5.22) M/mm3 Hgb 13.2 (11.2-15.7) gm/L Hct 40.4 (34.1-44.9) % MCV 93.3 (79.4-94.8) fl MCH 30.5 (25.6-32.2) pg MCHC 32.7 (32.2-35.5) g/dl RDW Std Deviation 42.3 (36.4-46.3) fL Plt Count 197 (182-369) K/mm3 MPV 10.6 (9.4-12.3) fl Neut % (Auto) 50.2 (34.0-71.1) % Lymph % (Auto) 35.8 (19.3-51.7) % Dawson % (Auto) 9.0 (4.7-12.5) % Eos % (Auto) 3.9 (0.7-5.8) Baso % (Auto) 1.1 (0.1-1.2) % Neut # (Auto) 3.07 (1.56-6.13) K/mm3 Lymph # (Auto) 2.19 (1.18-3.74) K/mm3 Dawson # (Auto) 0.55 H (0.24-0.36) K/mm3 Eos # (Auto) 0.24 (0.04-0.36) K/mm3 Baso # (Auto) 0.07 (0.01-0.08) K/mm3 Sodium 143 (136-145) mEq/L Potassium 4.2 (3.5-5.1) mEq/L Chloride 109 H (98-107) mEq/L Carbon Dioxide 23 (21-32) mEq/L Anion Gap 15.2 H (5-15) BUN 17 (7-18) mg/dL Creatinine 1.0 (0.55-1.02) mg/dL Est Cr Clr Drug Dosing 81.47 mL/min Estimated GFR (MDRD) > 60 (>60) mL/min BUN/Creatinine Ratio 17.0 (14-18) Glucose 90 (74-106) mg/dL Calcium 8.5 (8.5-10.1) mg/dL Magnesium 1.9 (1.8-2.4) mg/dl Triglycerides 44 (<150) mg/dL Cholesterol 148 (<200) mg/dL LDL Cholesterol Direct 73 (<100) mg/dL HDL Cholesterol 65.0 H (40-59) mg/dL Med Orders - Current: Current Medications Acetaminophen (Tylenol) 650 mg PO Q4H PRN PRN Reason: Pain (Mild 1-3)/fever Ondansetron HCl (Zofran Odt) 4 mg PO Q6H PRN PRN Reason: nausea, able to take PO Ondansetron HCl (Zofran) 4 mg IV Q6H PRN PRN Reason: Nausea/Vomiting Sodium Chloride (Saline Flush) 10 ml FLUSH ASDIRECTED PRN PRN Reason: Keep Vein Open Last Admin: 04/26/17 11:43 Dose: 10 ml Discontinued Medications Sodium Chloride (Normal Saline) 1,000 mls @ 999 mls/hr IV ONETIME ONE Stop: 04/26/17 12:28 Last Admin: 04/26/17 11:42 Dose: 999 mls/hr - Exam Quality Assessment: Reports: DVT Prophylaxis General: Reports: Alert, Oriented, Cooperative HEENT: Reports: Pupils Equal, Pupils Reactive, EOMI, Mucous Membr. Moist/[place] Neck: Reports: Supple, Trachea Midline, No JVD, No Thyromegaly Lungs: Reports: Clear to Auscultation, Normal Respiratory Effort Cardiovascular: Reports: Regular Rate, Regular Rhythm, No Murmurs GI/Abdominal Exam: Normal Bowel Sounds, Soft, Non-Tender, No Organomegaly, No Distention, No Abnormal Bruit, No Mass, Pelvis Stable (Female) Exam: Deferred Rectal (Female) Exam: Deferred Back Exam: Reports: Normal Inspection, Full Range of Motion Extremities: Normal Inspection, Normal Range of Motion, Non-Tender, No Pedal Edema, Normal Capillary Refill Skin: Reports: Warm, Dry, Intact Neurological: Reports: No New Focal Deficit Psy/Mental Status: Reports: Alert, Normal Affect, Normal Mood Physical Findings Comments:: neuro exam today was unremarkable. Labs were obtained and patient is doing very well. She will be discharged today. *Q Meaningful Use (DIS) - VTE *Q VTE Criteria *Q: - Stroke *Q Stroke Criteria *Q: - AMI *Q AMI Criteria *Q:
[2017-04-27 09:59] VITALS: BP 113/69
--- NOTE | 2017-04-27 10:53 | US ---
Carotid ultrasound: Duplex and color flow imaging was obtained of the carotid arteries. Comparison: No prior carotid imaging. Findings: No plaque is identified. Velocity measurements Right side: CCA has a peak systolic velocity of 1.01 m/s. ICA has a peak systolic velocity of 0.89 m/s and peak end-diastolic velocity of 0.36 m/s. ECA has a peak systolic velocity of 0.88 m/s. Vertebral artery has a peak systolic velocity of 0.44 m/s. ICA/CCA ratio 0.9. Left side: CCA has a peak systolic velocity of 1.33 m/s. ICA has a peak systolic velocity of 1.14 m/s and peak end-diastolic velocity of 0.41 m/s. ECA has a peak systolic velocity of 0.87 m/s. Vertebral artery has a peak systolic velocity of 0.40 m/s. ICA/CCA ratio is 0.9. Impression: 1. No abnormality identified on carotid ultrasound exam. Diagnostic code #1
== END 2017-04-27 13:10 | disposition home or self-care (01) | DRG 47 ==
LOC: JD.ED 11:16 → JD.OB 16:32 → OBSVTOIN 17:27
PROVIDERS: ADMIT Internal Medicine Cardiovascular Disease; ATTEND Internal Medicine Cardiovascular Disease
DX: G45.9 Transient cerebral ischemic attack, unspecified (principal); N17.9 Acute kidney failure, unspecified; E03.9 Hypothyroidism, unspecified; F12.10 Cannabis abuse, uncomplicated; Z87.891 Personal history of nicotine dependence; Z79.899 Other long term (current) drug therapy
CPT/HCPCS: 36415; 70450; 70450-26; 70551; 70551-26; 71010; 71010-26; 80048; 80053; 80061; 80306; 81001; 83735; 84443; 84703; 85025; 85610; 85730; 86038; 86430; 93005; 93010; 93306; 93880; 93880-26; 96360; 99284; 99285-25; G0480; J7040; J7050

== ENCOUNTER 2019-12-07 06:28 | Inpatient (IN) | payer BC ==
[2019-12-07] MEDS ORDERED: Ondansetron 4 MG/2 ML SDV IVPUSH PRN (06:46)
[2019-12-07] MEDS ORDERED: Sodium Chloride 0.9% 10 ML Syringe FLUSH PRN (06:46)
[2019-12-07] MEDS ORDERED: Ampicillin 2 GM in Sodium Chloride 0.9% 100 ML IV ONE (06:46)
[2019-12-07] MEDS ORDERED: Nalbuphine 10 MG/ML Syringe IVPUSH PRN (06:46)
[2019-12-07] MEDS ORDERED: Ampicillin 2 GM AdvVial IV ONE (06:57)
--- NOTE | 2019-12-07 06:57 | PCM.LDHP ---
L&D History of Present Illness - General Date of Service: 12/07/19 Admit Problem/Dx: Patient Status Order with Admit Dx/Problem 12/07/19 06:46 Patient Status [ADT] Routine Admission Diagnosis/Problem Admission Diagnosis/Problem Normal labor Source of Information: Patient History Limitations: Reports: No Limitations - History of Present Illness Introduction:: Patient is a 34 y/o at 38 3/7 wks who presents in labor. Doing well. Contractions started at 0400. No LOF or bleeding - Related Data Allergies/Adverse Reactions: Allergies Allergy/AdvReac Type Severity Reaction Status Date / Time No Known Allergies Allergy Verified 02/25/16 15:35 Home Medications: Home Meds Levothyroxine [Synthroid] 125 mcg PO DAILY 02/12/16 [History] Pnv No.95/Ferrous Fum/Folic AC [ Vitamin Tablet] 1 tab PO DAILY 02/12/16 [History] Past Medical History Cardiovascular History: Reports: Other (See Below) Other Cardiovascular History: history of pericarditis 2008. and meng parki nsons white syndrome [employer] History: Reports: : 4 Para: 3 LMP (Approximate): Neurological History: Reports: TIA Psychiatric History: Reports: Depression Endocrine/Metabolic History: Reports: Hypothyroidism - Past Surgical History HEENT Surgical History: Reports: LASIK, Oral Surgery Female Surgical History: Reports: LEEP Social & Family History - Family History Family Medical History: Noncontributory Oncologic: Reports: Thyroid Other Oncologic Family History: mother - Tobacco Use Smoking Status *Q: Former Smoker - Caffeine Use Caffeine Use: Reports: Coffee Other Caffeine Use: 2-3 - Alcohol Use Alcohol Use History: No - Recreational Drug Use Recreational Drug Use: No H&P Review of Systems - Review of Systems: Review Of Systems: See Below General: Reports: No Symptoms Pulmonary: Reports: No Symptoms Cardiovascular: Reports: No Symptoms Gastrointestinal: Reports: No Symptoms Genitourinary: Reports: No Symptoms Musculoskeletal: Reports: No Symptoms Psychiatric: Reports: No Symptoms Neurological: Reports: No Symptoms L&D Exam - Exam Exam: See Below - Vital Signs Weight: 99.11 kg - OB Specific Contraction Intensity: Moderate to Strong Movement: Active Heart Tones: Present Heart Tones per Min: 135 Heart Rate (FHR) Variability: Moderate (6-25 bmp) Presentation: Vertex - Ulloa Score Ulloa Score Cervix Position: Anterior Ulloa Score Consistency: Soft Ulloa Score Effacement: >80% Ulloa Score Dilation: > 5 cm Ulloa Score 's Station: -1 ,0 Ulloa Score Total: 12 - Exam General: Alert, Oriented, Cooperative Lungs: Clear to Auscultation, Normal Respiratory Effort Cardiovascular: Regular Rate, Regular Rhythm GI/Abdominal Exam: Soft, Non-Tender Genitourinary: Normal external exam Extremities: Normal Inspection Skin: Warm, Dry, Intact - Problem List (1) 38 weeks gestation of SNOMED Code(s): 88249976 ICD Code: Z3A.38 - 38 WEEKS GESTATION OF Status: Acute Current Visit: Yes (2) Gestational diabetes SNOMED Code(s): 54608973 ICD Code: O24.419 - GESTATIONAL DIABETES MELLITUS IN , UNSP CONTROL Status: Acute Current Visit: Yes Qualifiers: Gestational diabetes mellitus control: diet-controlled Trimester: third trimester Qualified Code(s): O24.410 - Gestational diabetes mellitus in , diet controlled (3) Rh negative state in antepartum period SNOMED Code(s): 526231093 ICD Code: O26.899 - OTH RELATED CONDITIONS, UNSPECIFIED TRIMESTER; Z67.91 - UNSPECIFIED BLOOD TYPE, RH NEGATIVE Status: Acute Current Visit: Yes (4) GBS (group B Streptococcus carrier), +RV culture, currently SNOMED Code(s): 8272975596928, 157715399, 2429948207945 ICD Code: O99.820 - STREPTOCOCCUS B CARRIER STATE COMPLICATING Status: Acute Current Visit: Yes Problem List Initiated/Reviewed/Updated: Yes Orders Last 24hrs: Active Orders 24 hr Category Date Time Status Patient Status [ADT] Routine ADT 12/07/19 06:46 Active Activity as Tolerated [RC] PFP Care 12/07/19 06:46 Active Communication Order [RC] ASDIRECTED Care 12/07/19 06:46 Active Heart Tones [RC] ASDIRECTED Care 12/07/19 06:47 Active Non Stress Test [RC] PER UNIT ROUTINE Care 12/07/19 06:46 Active Notify Provider [RC] PFP Care 12/07/19 06:46 Active Notify Provider [RC] PRN Care 12/07/19 06:46 Active Peripheral IV Care [RC] . DIRECTED Care 12/07/19 06:47 Active Vital Signs [RC] PER UNIT ROUTINE Care 12/07/19 06:46 Active Regular Diet [DIET] Diet 12/07/19 Breakfast Active CBC W/O DIFF,HEMOGRAM [HEME] Stat Lab 12/07/19 06:46 Ordered CORONAVIRUS COVID-19 JORDYN [MOLEC] Routine Lab 12/07/19 06:48 Ordered RAPID PLASMA REAGIN,RPR [CHEM] Routine Lab 12/07/19 06:46 Ordered TYPE AND SCREEN [BBK] Stat Lab 12/07/19 06:46 Ordered Ampicillin 1 gm Med 12/07/19 11:00 Active Sodium Chloride 0.9% [Normal Saline] 100 ml IV Q4H Ampicillin 2 gm Med 12/07/19 06:46 Active Sodium Chloride 0.9% [Normal Saline] 100 ml IV ONETIME Lactated Ringers [Ringers, Lactated] 1,000 ml Med 12/07/19 07:00 Active IV ASDIRECTED Nalbuphine [Nubain] Med 12/07/19 06:46 Active 10 mg IVPUSH Q2H PRN Ondansetron [Zofran] Med 12/07/19 06:46 Active 4 mg IVPUSH Q4H PRN Oxytocin/Lactated Ringers [Pitocin in LR 10 Units/1,000 Med 12/07/19 07:00 Active ML] 10 unit in 1,000 ml IV .CONTINUOUS Sodium Chloride 0.9% [Saline Flush] Med 12/07/19 06:46 Active 10 ml FLUSH ASDIRECTED PRN Electronic Heart Tones Ext w TOCO [WOMSER] Oth 12/07/19 06:46 Ordered Routine Electronic Heart Tones Internal [WOMSER] Per Unit Oth 12/07/19 06:46 Ordered Routine Peripheral IV Insertion Adult [OM.PC] Routine Oth 12/07/19 06:46 Ordered Resuscitation Status Routine Resus Stat 12/07/19 06:46 Ordered Medication Orders Ampicillin Sodium 2 gm/ Sodium (Chloride) 100 mls @ 200 mls/hr IV ONETIME ONE Stop: 12/07/19 07:15 Ampicillin Sodium 1 gm/ Sodium (Chloride) 100 mls @ 200 mls/hr IV Q4H INO Oxytocin/Lactated Ringer's (Pitocin In Lr 10 Units/1,000 Ml) 10 unit in 1,000 mls @ 500 mls/hr IV .CONTINUOUS INO Lactated Ringer's (Ringers, Lactated) 1,000 mls @ 100 mls/hr IV ASDIRECTED INO Nalbuphine HCl (Nubain) 10 mg IVPUSH Q2H PRN PRN Reason: Pain Ondansetron HCl (Zofran) 4 mg IVPUSH Q4H PRN PRN Reason: Nausea/Vomiting Sodium Chloride (Saline Flush) 10 ml FLUSH ASDIRECTED PRN PRN Reason: Keep Vein Open Assessment/Plan Comment:: * Labs to be done * Blood sugar to be done for GODMA * Ampicillin to be started * Pain management per patient preference * Anticipate
[2019-12-07] MEDS ORDERED: Lactated Ringers 1,000 ML ONE (06:58)
[2019-12-07] MEDS ORDERED: Oxytocin/Lactated Ringers 10 UNIT/1,000 ML BAG IV SCH (07:00)
[2019-12-07] MEDS ORDERED: Lactated Ringers 1,000 ML IV SCH (07:00)
--- NOTE | 2019-12-07 09:07 | PCM.DEL ---
L & D Note - General Info Date of Service: 12/07/19 - Delivery Note Labor: Spontaneous Delivery Outcome: Livebirth Delivery Method: Spontaneous Vaginal Delivery-Single Delivery Mode: Spontaneous Presentation: Right Occiput Anterior (REBECCA) Nuchal Cord: Present, Reduced Anesthesia Type: None Amniotic Fluid Description: Meconium Stained Episiotomy Type: None Laceration: None Placenta: Intact, Spontaneous Cord: 3 Vessels Estimated Blood Loss: 100 [place]: Bulb Syringe, Stimulated, Warmed, [place] Used, Warmer Used Delivery Comments (Free Text/Narrative):: Patient found to be complete and began pushing. With maternal pushing effort head delivered from an REBECCA presentation. Nuchal cord present and reduced. With gentle downward traction the shoulders and body delivered. Infant placed on maternal abdomen. Cord clamped and cut. Cord blood obtained. Placenta allowed time to separate and expelled intact. Inspection of the perineum after delivery showed no lacerations - General Info Date of Service: 12/07/19 - Patient Data Vitals - Most Recent: Last Vital Signs Temp 36.8 C 12/07/19 06:45 Pulse 98 12/07/19 06:45 Resp 16 12/07/19 06:45 BP 146/77 H 12/07/19 06:45 Pulse Ox 98 12/07/19 06:45 Weight - Most Recent: 99.11 kg Med Orders - Current: - Problem List & Annotations (1) 38 weeks gestation of SNOMED Code(s): 16918126 Code(s): Z3A.38 - 38 WEEKS GESTATION OF Status: Acute Current Visit: Yes (2) Gestational diabetes SNOMED Code(s): 86029552 Code(s): O24.419 - GESTATIONAL DIABETES MELLITUS IN , UNSP CONTROL Status: Acute Current Visit: Yes Qualifiers: Gestational diabetes mellitus control: diet-controlled Trimester: third trimester Qualified Code(s): O24.410 - Gestational diabetes mellitus in , diet controlled (3) Rh negative state in antepartum period SNOMED Code(s): 059917839 Code(s): O26.899 - OTH RELATED CONDITIONS, UNSPECIFIED TRIMESTER; Z67.91 - UNSPECIFIED BLOOD TYPE, RH NEGATIVE Status: Acute Current Visit: Yes (4) GBS (group B Streptococcus carrier), +RV culture, currently SNOMED Code(s): 1087956080549, 248052858, 3977084097279 Code(s): O99.820 - STREPTOCOCCUS B CARRIER STATE COMPLICATING Status: Acute Current Visit: Yes - Problem List Review Problem List Initiated/Reviewed/Updated: Yes - My Orders Last 24 Hours: My Active Orders 12/07/19 06:46 Patient Status [ADT] Routine Activity as Tolerated [RC] PFP Communication Order [RC] ASDIRECTED Non Stress Test [RC] PER UNIT ROUTINE Notify Provider [RC] PFP Notify Provider [RC] PRN Vital Signs [RC] 09,15,21,03 Nalbuphine [Nubain] 10 mg IVPUSH Q2H PRN Ondansetron [Zofran] 4 mg IVPUSH Q4H PRN Sodium Chloride 0.9% [Saline Flush] 10 ml FLUSH ASDIRECTED PRN Electronic Heart Tones Ext w TOCO [WOMSER] Routine Electronic Heart Tones Internal [WOMSER] Per Unit Routine Peripheral IV Insertion Adult [OM.PC] Routine Resuscitation Status Routine 12/07/19 06:47 Heart Tones [RC] ASDIRECTED Peripheral IV Care [RC] . DIRECTED 12/07/19 Breakfast Regular Diet [DIET] Lactated Ringers [Ringers, Lactated] 1,000 ml IV ASDIRECTED Oxytocin/Lactated Ringers [Pitocin in LR 10 Units/1,000 ML] 10 unit in 1,000 ml IV .CONTINUOUS 12/07/19 07:06 Blood Glucose Check, Bedside [RC] ONETIME 12/07/19 07:07 ANTIBODY IDENTIFICATION [BBK] Stat RAPID PLASMA REAGIN,RPR [CHEM] Routine TYPE AND SCREEN [BBK] Stat 12/07/19 11:00 Ampicillin 1 gm Sodium Chloride 0.9% [Normal Saline] 100 ml IV Q4H - Assessment Assessment:: PPD#0 - Plan Plan:: * Routine cares * Breast feeding * Blood glucose to be check in AM for GODMA * Assess blood type following delivery to see need for Rhogam * Discharge home in 1-2 days
[2019-12-07] MEDS ORDERED: Docusate Sodium 100 MG Cap PO PRN (09:25)
[2019-12-07] MEDS ORDERED: Benzocaine/Menthol 20%-0.5% Spray 56 GM Canister TOP PRN (09:25)
[2019-12-07] MEDS ORDERED: Witch Hazel Medicated Pads 40/Jar TOP PRN (09:25)
[2019-12-07] MEDS: Ibuprofen 600 MG Tab PO PRN ×3 (09:36→21:46)
[2019-12-07] MEDS ORDERED: Ampicillin 1 GM in Sodium Chloride 0.9% 100 ML IV SCH (11:00)
[2019-12-07] MEDS: Acetaminophen 325 MG Tab PO PRN (21:08)
[2019-12-08] MEDS: Ibuprofen 600 MG Tab PO PRN ×3 (04:04→18:07)
[2019-12-08] MEDS: Levothyroxine 125 MCG Tab PO SCH (05:59)
--- NOTE | 2019-12-08 07:35 | PCM.PNPP ---
- General Info Date of Service: 12/08/19 Functional Status: Reports: Pain Controlled, Tolerating Diet, Ambulating, Urinating - Review of Systems General: Reports: No Symptoms Pulmonary: Reports: No Symptoms Cardiovascular: Reports: No Symptoms Gastrointestinal: Reports: No Symptoms Genitourinary: Reports: No Symptoms Musculoskeletal: Reports: No Symptoms Neurological: Reports: No Symptoms - General Info Date of Service: 12/08/19 - Patient Data Vital Signs - Most Recent: Last Vital Signs Temp 37.0 C 12/08/19 04:06 Pulse 51 L 12/08/19 04:06 Resp 14 12/08/19 04:06 BP 116/68 12/08/19 04:06 Pulse Ox 95 12/08/19 04:06 Weight - Most Recent: 99.11 kg I&O - Last 24 Hours: Intake & Output 12/07/19 12/08/19 12/08/19 22:59 06:59 14:59 Intake Total 2 Balance 2 Lab Results - Last 24 Hours: Laboratory Results - last 24 hr 12/07/19 12/07/19 12/07/19 Range/Units 07:07 07:15 07:42 POC Glucose 108 H (70-105) mg/dL COVID-19 (JORDYN) Negative (NEGATIVE) Blood Type O NEGATIVE Gel Antibody Screen Positive Screen 2 ros/5 flds - neg RhIG Candidate? Yes Med Orders - Current: Current Medications Acetaminophen (Tylenol) 650 mg PO Q4H PRN PRN Reason: mild pain or fever Last Admin: 12/07/19 21:08 Dose: 650 mg Documented by: Benzocaine/Menthol (Dermoplast Pain Relief [place]) 0 gm TOP ASDIRECTED PRN PRN Reason: Perineal Comfort Measure Docusate Sodium (Colace) 100 mg PO BID PRN PRN Reason: Constipation Ibuprofen (Motrin) 600 mg PO Q6H PRN PRN Reason: Mild pain or fever Last Admin: 12/08/19 04:04 Dose: 600 mg Documented by: Levothyroxine Sodium (Levothyroxine) 125 mcg PO ACBREAKFAST INO Last Admin: 12/08/19 05:59 Dose: 125 mcg Documented by: Fermin Goodwin (Tucks) 1 pad TOP ASDIRECTED PRN PRN Reason: Perineal Comfort Measure Last Admin: 12/07/19 13:14 Dose: 1 tub Documented by: Discontinued Medications Ampicillin Sodium (Ampicillin) Confirm Administered Dose 2 gm IV .STK-MED ONE Stop: 12/07/19 06:58 Last Admin: 12/08/19 07:04 Dose: Not Given Documented by: Ampicillin Sodium 2 gm/ Sodium (Chloride) 100 mls @ 200 mls/hr IV ONETIME ONE Stop: 12/07/19 07:15 Last Admin: 12/07/19 06:55 Dose: 200 mls/hr Documented by: Ampicillin Sodium 1 gm/ Sodium (Chloride) 100 mls @ 200 mls/hr IV Q4H INO Oxytocin/Lactated Ringer's (Pitocin In Lr 10 Units/1,000 Ml) 10 unit in 1,000 mls @ 500 mls/hr IV .CONTINUOUS INO Last Admin: 12/07/19 08:55 Dose: 500 mls/hr Documented by: Lactated Ringer's (Ringers, Lactated) 1,000 mls @ 100 mls/hr IV ASDIRECTED INO Last Admin: 12/07/19 06:55 Dose: 100 mls/hr Documented by: Lactated Ringer's (Ringers, Lactated) Confirm Administered Dose 1,000 mls @ as directed .ROUTE .STK-MED ONE Stop: 12/07/19 06:59 Last Admin: 12/08/19 07:04 Dose: Not Given Documented by: Nalbuphine HCl (Nubain) 10 mg IVPUSH Q2H PRN PRN Reason: Pain Ondansetron HCl (Zofran) 4 mg IVPUSH Q4H PRN PRN Reason: Nausea/Vomiting Sodium Chloride (Saline Flush) 10 ml FLUSH ASDIRECTED PRN PRN Reason: Keep Vein Open - Infant Interaction Infant Disposition, : [place] in Room with Family Infant Interaction: Holding Feeding: Breastfed Infant; Nursed Well Support Person: - Recovery Exam Fundal Tone: Firm Fundal Level: 1 Fingerbreadths Below Umbilicus Fundal Placement: Midline Lochia Amount: Small Lochia Color: Rubra/Red Perineum Description: Intact, Minimal Bruising/Swelling Episiotomy/Laceration: None Bladder Status: Nonpalpable, Voiding Urinary Elimination: Voided - Exam General: Alert, Oriented, Cooperative GI/Abdominal Exam: Soft, Non-Tender Extremities: Normal Inspection Skin: Warm, Dry, Intact - Problem List & Annotations (1) 38 weeks gestation of SNOMED Code(s): 94842408 Code(s): Z3A.38 - 38 WEEKS GESTATION OF Status: Acute Current Visit: Yes (2) Gestational diabetes SNOMED Code(s): 40158465 Code(s): O24.419 - GESTATIONAL DIABETES MELLITUS IN , UNSP CONTROL Status: Acute Current Visit: Yes Qualifiers: Gestational diabetes mellitus control: diet-controlled Trimester: third trimester Qualified Code(s): O24.410 - Gestational diabetes mellitus in , diet controlled (3) Rh negative state in antepartum period SNOMED Code(s): 058428136 Code(s): O26.899 - OTH RELATED CONDITIONS, UNSPECIFIED TRIMESTER; Z67.91 - UNSPECIFIED BLOOD TYPE, RH NEGATIVE Status: Acute Current Visit: Yes (4) GBS (group B Streptococcus carrier), +RV culture, currently SNOMED Code(s): 9544020424056, 766502449, 9820012841739 Code(s): O99.820 - STREPTOCOCCUS B CARRIER STATE COMPLICATING Status: Acute Current Visit: Yes - Problem List Review Problem List Initiated/Reviewed/Updated: Yes - My Orders Last 24 Hours: My Active Orders 12/07/19 06:46 Resuscitation Status Routine 12/07/19 Breakfast Regular Diet [DIET] 12/07/19 07:06 Blood Glucose Check, Bedside [RC] 0600 12/07/19 07:07 ANTIBODY IDENTIFICATION [BBK] Stat SCREEN [BBK] Stat RAPID PLASMA REAGIN,RPR [CHEM] Routine RH IMMUNE GLOBULIN [BBK] Stat TYPE AND SCREEN [BBK] Stat 12/07/19 09:25 Acetaminophen [Tylenol] 650 mg PO Q4H PRN Benzocaine/Menthol [Dermoplast Pain Relief [place]] See Dose Instructions TOP ASDIRECTED PRN Docusate Sodium [Colace] 100 mg PO BID PRN Ibuprofen [Motrin] 600 mg PO Q6H PRN witch Nickie [Tucks] 1 pad TOP ASDIRECTED PRN Heat Therapy [OM.PC] PRN 12/07/19 09:25 Activity as Tolerated [RC] PER UNIT ROUTINE Vital Signs [RC] 09,15,21,03 Assess Lochia [WOMSER] Per Unit Routine Assess Uterine Involution [WOMSER] Per Unit Routine Breast Pump [WOMSER] Per Unit Routine Ice Therapy [OM.PC] Per Unit Routine Perineal Care [OM.PC] Per Unit Routine Peripheral IV Discontinue [OM.PC] Routine Sitz Bath [OM.PC] Per Unit Routine 12/08/19 06:00 Levothyroxine 125 mcg PO ACBREAKFAST 12/08/19 09:25 Heat Therapy [OM.PC] PRN - Assessment Assessment:: PPD#1 - Plan Plan:: * Blood glucose this AM * S/p Rhogam * Breast feeding * Discharge home tomorrow
[2019-12-08] MEDS: Acetaminophen 325 MG Tab PO PRN (13:02)
[2019-12-09] MEDS: Levothyroxine 125 MCG Tab PO SCH (06:09)
--- NOTE | 2019-12-09 07:08 | PCM.PNPP ---
- General Info Date of Service: 12/09/19 Functional Status: Reports: Pain Controlled, Tolerating Diet, Ambulating, Urinating - Review of Systems General: Reports: No Symptoms Pulmonary: Reports: No Symptoms Cardiovascular: Reports: No Symptoms Gastrointestinal: Reports: No Symptoms Genitourinary: Reports: No Symptoms Musculoskeletal: Reports: No Symptoms Neurological: Reports: No Symptoms - Patient Data Vital Signs - Most Recent: Last Vital Signs Temp 36.6 C 12/09/19 02:55 Pulse 51 L 12/09/19 02:55 Resp 14 12/09/19 02:55 BP 109/60 12/09/19 02:55 Pulse Ox 95 12/09/19 02:55 Weight - Most Recent: 99.11 kg I&O - Last 24 Hours: Intake & Output 12/08/19 12/09/19 12/09/19 22:59 06:59 14:59 Intake Total 360 Balance 360 Lab Results - Last 24 Hours: Laboratory Results - last 24 hr 12/07/19 12/08/19 Range/Units 07:07 05:59 POC Glucose 84 (70-105) mg/dL RPR Non-reactive (NONREACTIVE) Med Orders - Current: Current Medications Acetaminophen (Tylenol) 650 mg PO Q4H PRN PRN Reason: mild pain or fever Last Admin: 12/08/19 13:02 Dose: 650 mg Documented by: Benzocaine/Menthol (Dermoplast Pain Relief [place]) 0 gm TOP ASDIRECTED PRN PRN Reason: Perineal Comfort Measure Docusate Sodium (Colace) 100 mg PO BID PRN PRN Reason: Constipation Ibuprofen (Motrin) 600 mg PO Q6H PRN PRN Reason: Mild pain or fever Last Admin: 12/08/19 18:07 Dose: 600 mg Documented by: Levothyroxine Sodium (Levothyroxine) 125 mcg PO ACBREAKFAST INO Last Admin: 12/09/19 06:09 Dose: 125 mcg Documented by: Fermin [facility]) 1 pad TOP ASDIRECTED PRN PRN Reason: Perineal Comfort Measure Last Admin: 12/07/19 13:14 Dose: 1 tub Documented by: Discontinued Medications Ampicillin Sodium (Ampicillin) Confirm Administered Dose 2 gm IV .STK-MED ONE Stop: 12/07/19 06:58 Last Admin: 12/08/19 07:04 Dose: Not Given Documented by: Ampicillin Sodium 2 gm/ Sodium (Chloride) 100 mls @ 200 mls/hr IV ONETIME ONE Stop: 12/07/19 07:15 Last Admin: 12/07/19 06:55 Dose: 200 mls/hr Documented by: Ampicillin Sodium 1 gm/ Sodium (Chloride) 100 mls @ 200 mls/hr IV Q4H INO Oxytocin/Lactated Ringer's (Pitocin In Lr 10 Units/1,000 Ml) 10 unit in 1,000 mls @ 500 mls/hr IV .CONTINUOUS INO Last Admin: 12/07/19 08:55 Dose: 500 mls/hr Documented by: Lactated Ringer's (Ringers, Lactated) 1,000 mls @ 100 mls/hr IV ASDIRECTED INO Last Admin: 12/07/19 06:55 Dose: 100 mls/hr Documented by: Lactated Ringer's (Ringers, Lactated) Confirm Administered Dose 1,000 mls @ as directed .ROUTE .[facility]-MED ONE Stop: 12/07/19 06:59 Last Admin: 12/08/19 07:04 Dose: Not Given Documented by: Nalbuphine HCl (Nubain) 10 mg IVPUSH Q2H PRN PRN Reason: Pain Ondansetron HCl (Zofran) 4 mg IVPUSH Q4H PRN PRN Reason: Nausea/Vomiting Sodium Chloride (Saline Flush) 10 ml FLUSH ASDIRECTED PRN PRN Reason: Keep Vein Open - Infant Interaction Disposition, : [place] in Room with Family Interaction: Holding Infant Infant Feeding: Breastfed Infant; Nursed Well Support Person: - Recovery Exam Fundal Tone: Firm Fundal Level: 2 Fingerbreadths Below Umbilicus Fundal Placement: Midline Lochia Amount: Small Lochia Color: Rubra/Red Perineum Description: Intact, Minimal Bruising/Swelling Episiotomy/Laceration: None Bladder Status: Nonpalpable, Voiding Urinary Elimination: Voided - Exam General: Alert, Oriented, Cooperative GI/Abdominal Exam: Soft, Non-Tender Extremities: Normal Inspection Skin: Warm, Dry, Intact - Problem List & Annotations (1) 38 weeks gestation of SNOMED Code(s): 43354480 Code(s): Z3A.38 - 38 WEEKS GESTATION OF Status: Acute Current Visit: Yes (2) Gestational diabetes SNOMED Code(s): 97902179 Code(s): O24.419 - GESTATIONAL DIABETES MELLITUS IN , UNSP CONTROL Status: Acute Current Visit: Yes Qualifiers: Gestational diabetes mellitus control: diet-controlled Trimester: third trimester Qualified Code(s): O24.410 - Gestational diabetes mellitus in , diet controlled (3) Rh negative state in antepartum period SNOMED Code(s): 293299270 Code(s): O26.899 - OTH RELATED CONDITIONS, UNSPECIFIED TRIMESTER; Z67.91 - UNSPECIFIED BLOOD TYPE, RH NEGATIVE Status: Acute Current Visit: Yes (4) GBS (group B Streptococcus carrier), +RV culture, currently SNOMED Code(s): 3606982658299, 328107206, 1119934959729 Code(s): O99.820 - STREPTOCOCCUS B CARRIER STATE COMPLICATING Status: Acute Current Visit: Yes - Problem List Review Problem List Initiated/Reviewed/Updated: Yes - My Orders Last 24 Hours: My Active Orders 12/08/19 09:25 Heat Therapy [OM.PC] PRN 12/09/19 07:07 Ready for Discharge [RC] PER UNIT ROUTINE - Assessment Assessment:: PPD#2 - Plan Plan:: * Blood glucose PPD#1 normal. Will need 2hr GTT at check * S/p Rhogam * Breast feeding * Discharge home today
--- NOTE | 2019-12-09 07:09 | PCM.DCSUM1 ---
Discharge Summary - Discharge Data Discharge Date: 12/09/19 Discharge Disposition: Home, Self-Care 01 Condition: Good - Referral to Home Health Primary Care Physician: Kristine Perez MD - Discharge Diagnosis/Problem(s) (1) 38 weeks gestation of SNOMED Code(s): 87659815 ICD Code: Z3A.38 - 38 WEEKS GESTATION OF Status: Acute Current Visit: Yes (2) Gestational diabetes SNOMED Code(s): 63610294 ICD Code: O24.419 - GESTATIONAL DIABETES MELLITUS IN , UNSP CONTROL Status: Acute Current Visit: Yes Qualifiers: Gestational diabetes mellitus control: diet-controlled Trimester: third trimester Qualified Code(s): O24.410 - Gestational diabetes mellitus in , diet controlled (3) Rh negative state in antepartum period SNOMED Code(s): 765634635 ICD Code: O26.899 - OTH RELATED CONDITIONS, UNSPECIFIED TRIMESTER; Z67.91 - UNSPECIFIED BLOOD TYPE, RH NEGATIVE Status: Acute Current Visit: Yes (4) GBS (group B Streptococcus carrier), +RV culture, currently SNOMED Code(s): 1146512160877, 621547547, 7696216480752 ICD Code: O99.820 - STREPTOCOCCUS B CARRIER STATE COMPLICATING Status: Acute Current Visit: Yes - Patient Summary/Data Complications: None Consults: None Recommended Follow-up Testing/Procedures: Follow up in 3 weeks for check Hospital Course: 34 y/o at 38 3/7 wks who presented in labor. Progressed well without need for augmentation. Underwent an uncomplicated . See delivery note. did well and was discharged home on PPD#2 - Patient Instructions Diet: Regular Diet as Tolerated Activity: As Tolerated Activity, Other: Pelvic rest for 6 weeks Driving: May Drive Today Showering/Bathing: May Shower Showering/Bathing, Other: May bathe Notify Provider of: Fever, Increased Pain, Swelling and Redness, Drainage, Nausea and/or Vomiting - Discharge Plan *PRESCRIPTION DRUG MONITORING PROGRAM REVIEWED*: No *COPY OF PRESCRIPTION DRUG MONITORING REPORT IN PATIENT [place]: No Home Medications: Home Meds Levothyroxine [Synthroid] 125 mcg PO DAILY 02/12/16 [History] Pnv No.95/Ferrous Fum/Folic AC [ Vitamin Tablet] 1 tab PO DAILY 02/12/16 [History] Ibuprofen [Motrin] 600 mg PO Q6H PRN tablet 12/07/19 [Rx] Patient Handouts: Breast Pumping Tips, and Self-Care, Care After Vaginal Delivery Referrals: Kristine Perez MD [Primary Care Provider] - (2-3 weeks for check ) - Discharge Summary/Plan Comment DC Time >30 min.: No - Patient Data Vitals - Most Recent: Last Vital Signs Temp 36.6 C 12/09/19 02:55 Pulse 51 L 12/09/19 02:55 Resp 14 12/09/19 02:55 BP 109/60 12/09/19 02:55 Pulse Ox 95 12/09/19 02:55 Weight - Most Recent: 99.11 kg I&O - Last 24 hours: Intake & Output 12/08/19 12/09/19 12/09/19 22:59 06:59 14:59 Intake Total 360 Balance 360 Lab Results - Last 24 hrs: Laboratory Results - last 24 hr 12/07/19 12/08/19 Range/Units 07:07 05:59 POC Glucose 84 (70-105) mg/dL RPR Non-reactive (NONREACTIVE) Med Orders - Current: Current Medications Acetaminophen (Tylenol) 650 mg PO Q4H PRN PRN Reason: mild pain or fever Last Admin: 12/08/19 13:02 Dose: 650 mg Documented by: Benzocaine/Menthol (Dermoplast Pain Relief [place]) 0 gm TOP ASDIRECTED PRN PRN Reason: Perineal Comfort Measure Docusate Sodium (Colace) 100 mg PO BID PRN PRN Reason: Constipation Ibuprofen (Motrin) 600 mg PO Q6H PRN PRN Reason: Mild pain or fever Last Admin: 12/08/19 18:07 Dose: 600 mg Documented by: Levothyroxine Sodium (Levothyroxine) 125 mcg PO ACBREAKFAST INO Last Admin: 12/09/19 06:09 Dose: 125 mcg Documented by: Fermin Goodwin ([facility]) 1 pad TOP ASDIRECTED PRN PRN Reason: Perineal Comfort Measure Last Admin: 12/07/19 13:14 Dose: 1 tub Documented by: Discontinued Medications Ampicillin Sodium (Ampicillin) Confirm Administered Dose 2 gm IV .STK-MED ONE Stop: 12/07/19 06:58 Last Admin: 12/08/19 07:04 Dose: Not Given Documented by: Ampicillin Sodium 2 gm/ Sodium (Chloride) 100 mls @ 200 mls/hr IV ONETIME ONE Stop: 12/07/19 07:15 Last Admin: 12/07/19 06:55 Dose: 200 mls/hr Documented by: Ampicillin Sodium 1 gm/ Sodium (Chloride) 100 mls @ 200 mls/hr IV Q4H INO Oxytocin/Lactated Ringer's (Pitocin In Lr 10 Units/1,000 Ml) 10 unit in 1,000 mls @ 500 mls/hr IV .CONTINUOUS INO Last Admin: 12/07/19 08:55 Dose: 500 mls/hr Documented by: Lactated Ringer's (Ringers, Lactated) 1,000 mls @ 100 mls/hr IV ASDIRECTED INO Last Admin: 12/07/19 06:55 Dose: 100 mls/hr Documented by: Lactated Ringer's (Ringers, Lactated) Confirm Administered Dose 1,000 mls @ as directed .ROUTE .K-MED ONE Stop: 12/07/19 06:59 Last Admin: 12/08/19 07:04 Dose: Not Given Documented by: Nalbuphine HCl (Nubain) 10 mg IVPUSH Q2H PRN PRN Reason: Pain Ondansetron HCl (Zofran) 4 mg IVPUSH Q4H PRN PRN Reason: Nausea/Vomiting Sodium Chloride (Saline Flush) 10 ml FLUSH ASDIRECTED PRN PRN Reason: Keep Vein Open
[2019-12-09] MEDS: Ibuprofen 600 MG Tab PO PRN (10:13)
[2019-12-09 10:27] VITALS: BP 117/89; PULSE 62
== END 2019-12-09 10:31 | disposition home or self-care (01) | DRG 560 ==
LOC: JD.OB 06:28 → JD.OBCHECK 06:28 → JD.OB 06:46 → JD.OBCHECK 06:46 → OBSVTOIN 08:53 → JD.OB 08:54
PROVIDERS: ADMIT Obstetrics & Gynecology; ATTEND Obstetrics & Gynecology
PROC: 10E0XZZ Delivery of Products of Conception, External Approach (ICD-10-PCS; principal; 2019-12-07)
PROC: 3E0234Z Introduction of Serum, Toxoid and Vaccine into Muscle, Percutaneous Approach (ICD-10-PCS; 2019-12-07)
DX: O24.420 Gestational diabetes mellitus in childbirth, diet controlled (principal); Z3A.38 38 weeks gestation of pregnancy; Z37.0 Single live birth; O99.824 Streptococcus B carrier state complicating childbirth; O99.284 Endocrine, nutritional and metabolic diseases complicating childbirth; E03.9 Hypothyroidism, unspecified; O99.344 Other mental disorders complicating childbirth; F32.9 Major depressive disorder, single episode, unspecified; Z86.73 Personal history of transient ischemic attack (TIA), and cerebral infarction without residual deficits; Z87.891 Personal history of nicotine dependence; O77.0 Labor and delivery complicated by meconium in amniotic fluid; O69.81X0 Labor and delivery complicated by cord around neck, without compression, not applicable or unspecified; Z11.59 Encounter for screening for other viral diseases; O26.893 Other specified pregnancy related conditions, third trimester; Z67.41 Type O blood, Rh negative
CPT/HCPCS: 36415; 59025; 59409; 82962; 85027; 85461; 86592; 86850; 86870; 86900; 86901; A9270-GY; J0290; J2590; J2790; J7050; J7120; U0002